=== PATIENT | female | born 1945 | race Caucasian/White ===

== ENCOUNTER 2022-09-27 14:44 | Emergency (ER) | payer MEDICARE, SELFPAY ==
[2022-09-27 14:55] VITALS: BP 148/87; PULSE 92; RESP 16; TEMP 37.7; O2SAT 98
[2022-09-27 15:09] VITALS: BP 148/87; PULSE 92; RESP 16; TEMP 37.7; O2SAT 98
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
== END 2022-09-27 15:58 | disposition home or self-care (01) ==
PROVIDERS: Emergency Provider Nurse Practitioner Family
DX: U07.1 COVID-19 (principal); I48.91 Unspecified atrial fibrillation; E03.9 Hypothyroidism, unspecified; Z79.82 Long term (current) use of aspirin
CPT/HCPCS: 81003; 87426; 99213; C9803; G0463